=== PATIENT | male | born 1990 | race Caucasian/White ===

== ENCOUNTER → 2016-08-17 | Outpatient (CLI) | payer OTHER | LOC: RAD 09:30 | PROVIDERS: ATTEND Internal Medicine | DX: I70.1 Atherosclerosis of renal artery (principal) | CPT/HCPCS: 93975 ==

== ENCOUNTER 2017-05-07 05:03 | Emergency (ER) | payer BC, OTHER ==
[2017-05-07] MEDS ORDERED: HYDROMORPHONE HCL INJ/PF 2 MG/ML AMPULE IV ONE (05:31)
[2017-05-07] MEDS ORDERED: NORMAL SALINE 1000 ML 1,000 ML IV ONE (05:50)
[2017-05-07] MEDS ORDERED: PROPOFOL INJ 200 MG/20 ML VIAL IV ONE (05:50)
--- NOTE | 2017-05-07 05:59 | RADIOLOGY REPORT (SQ) ---
EXAM DESCRIPTION: ANKLE LEFT AP/LATERAL CLINICAL HISTORY: deformity. Crush injury. COMPARISON: None. FINDINGS: 2 views of the left ankle. Acute spiral fracture of the distal left tibia with intra-articular extension and mild displacement. There is an avulsion fracture of the medial malleolus. Spiral fracture of the distal left fibular diaphysis with mild displacement. Normal osseous mineralization. This is diffuse soft tissue swelling. No definite radiopaque foreign body or subcutaneous air. IMPRESSION: 1. Acute comminuted spiral fracture of the distal left tibial metaphysis with intra-articular extension to the tibial plafond. 2. Mildly displaced comminuted spiral fracture of the distal left fibula.
[2017-05-07] MEDS ORDERED: ONDANSETRON HCL INJ/PF 4 MG/2 ML SDV IV ONE (06:02)
[2017-05-07] MEDS ORDERED: ONDANSETRON HCL INJ/PF 4 MG/2 ML SDV ONE (06:04)
--- NOTE | 2017-05-07 06:31 | ER Document Report ---
ED General - General Chief Complaint: Ankle Injury Stated Complaint: FOOT INJURY Time Seen by Provider: 05/07/17 05:49 Notes: Patient is a 26-year-old male who presents with complaint of injury to his left ankle. He was wrestling with his brother when his brother fell onto his left ankle and cause it to break. He denies any other injuries. No other complaints. He has no medical problems. He has no medical allergies. Said he did have some alcohol earlier tonight. He said the last drink was over 3 hours ago. Last time he ate was a little over 4 hours ago. No numbness into the foot. No other complaints at this time. TRAVEL OUTSIDE OF THE [place] IN LAST 30 DAYS: No - Related Data Allergies/Adverse Reactions: No Known Allergies Allergy (Unverified 05/07/17 05:07) Past Medical History - Social History Smoking Status: Unknown if Ever Smoked Frequency of alcohol use: Occasional Drug Abuse: None Family History: Reviewed & Not Pertinent Patient has suicidal ideation: No Patient has homicidal ideation: No Renal/ Medical History: Denies: Hx Peritoneal Dialysis Review of Systems - Review of Systems Notes: My Normal Review Basic REVIEW OF SYSTEMS: CONSTITUTIONAL : Denies fever, chills, or sweats. Denies recent illness. RESPIRATORY: Denies cough, cold, or chest congestion. Denies shortness of breath, difficulty breathing, or wheezing. GASTROINTESTINAL: Denies abdominal pain. Denies nausea, vomiting, or diarrhea. Denies constipation. Last BM: MUSCULOSKELETAL: Pain in left ankle. SKIN: Denies rash or skin lesions. NEUROLOGICAL: Denies altered mental status or loss of consciousness. Denies headache. Denies weakness or paralysis or loss of use of either side. Denies problems with gait or speech. Denies sensory or motor loss. ALL OTHER SYSTEMS REVIEWED AND NEGATIVE. Physical Exam - Vital signs Vitals: Temp Pulse Resp BP Pulse Ox 98.1 F 113 H 16 168/115 H 98 05/07/17 05:10 05/07/17 05:10 05/07/17 05:10 05/07/17 05:10 05/07/17 05:10 - Notes Notes: General Appearance: Well nourished, alert, cooperative, no acute distress, mild to moderate obvious discomfort. Vitals: reviewed, See vital signs table. Eyes: PERRL, EOMI, Conjuctiva clear Mouth: No decreasd moisture Throat: No tonsillar inflammation, No airway obstruction, No lymphadenopathy Neck: Supple, no neck tenderness, No swelling Lungs: No wheezing, No rales, No rhonci, No accessory muscle use, good air exchange bilaterally. Heart: Normal rate, Regular rythm, No murmur, no rub Extremities: strength 5/5 in all extremities, good pulses in all extremities, obvious deformity to left ankle. Distal pulses intact. Good capillary refill. No pain above the ankle or into the knee., no edema. Skin: warm, dry, appropriate color, no rash Neuro: speech clear, oriented x 3, normal affect, responds appropriately to questions. Distal sensation intact. Course - Re-evaluation Re-evalutation: 05/07/17 07:15 Patient is awake from sedation. He looks well. He tolerated sedation well without difficulty. Ankle splint this was placed on. He will be given crutches. He will be discharged to follow closely with orthopedist. I talked to him and his brother at length about the importance of follow-up with orthopedist informed him there is a high likelihood that he may need surgery. Patient is understanding of this. Patient encouraged to return to ER if he has any further concerns or complications. Patient will be discharged home. Dictation of this chart was performed using voice recognition software; therefore, there may be some unintended grammatical errors. - Vital Signs Vital signs: Temp Pulse Resp BP Pulse Ox 98.1 F 113 H 19 147/109 H 100 05/07/17 05:10 05/07/17 05:10 05/07/17 06:35 05/07/17 06:34 05/07/17 06:35 Procedures - Conscious Sedation procedural sedation Consent obtained: Yes Prior complications: Procedural sedation Normal healthy pt.: P1. - ASA Classification Airway Evaluation: Normal anatomy Mallampati Classification: Class 1 Used during procedure: Suction available, IV access obtained, Pulse ox on pt., bridge operator slip on pt. Medications administered: Diprivan Reversal agents: None I personally performed/intraservice time: 30 min or less Complications: No - Immobilization left ankle Pre-Proc Neuro Vasc Exam: Normal Immobilizer type: Sugar tong, Short Leg Posterior Performed by: Provider Post-Proc Neuro Vasc Exam: Normal Alignment checked and good: Yes - Joint Reduction/Fracture Care Left Ankle Consent obtained: Yes Conscious sedation: Yes Pre-procedure NV exam: Yes Fracture: Closed Manipulation comment: traction Post-procedure NV exam: Yes Post-reduction x-ray: Joint reduced Reduction attempts: 1 Complications: No Discharge - Discharge Clinical Impression: Ankle fracture, left Qualifiers: Encounter type: initial encounter Fracture type: closed Qualified Code(s): S82.892A - Other fracture of left lower leg, initial encounter for closed fracture Condition: Good Instructions: Use of Crutches (OM), Oral Narcotic Medication (OM) Additional Instructions: You have fractures of the tibia and Fibula. These are 2 bones that make up your ankle. You will most likely need surgery. We have splinted your ankle to give it support until your follow up with the orthopedist. Please call the orthopedist's office on Monday to make a close follow up appointment. Please return to the ER immediately if you are having worsening pain, fevers, numbness or weakness into your foot, or if you feel unwell. If you feel that your splint is too tight you can loosen the mimi wrap on the splint. If it still feels too tight you should return to the ER so we can reevaluate the the splint. Do not bear any weight on your foot. Prescriptions: Oxycodone HCl/Acetaminophen [Percocet 5-325 mg Tablet] 1 tab PO Q4H PRN #15 tablet PRN Reason: Forms: Return to Work Referrals: SIXTO JUSTICE MD [ACTIVE STAFF] - 05/08/17 (call the office monday to make a close follow up appointment.)
[2017-05-07 07:24] VITALS: BP 128/90
--- NOTE | 2017-05-07 08:13 | RADIOLOGY REPORT (SQ) ---
EXAM DESCRIPTION: ANKLE LEFT AP/LATERAL COMPLETED DATE/TIME: 05/07/2017 7:06 am REASON FOR STUDY: Postreduction views. COMPARISON: Left ankle 05/07/2017. NUMBER OF VIEWS: Two views through overlying cast. TECHNIQUE: Post casting AP and lateral radiographic images acquired of the left ankle. LIMITATIONS: None. FINDINGS: There is again evidence of the previously described comminuted spiral fracture distal righ t tibia extending into the tibial plafond. Interval decrease in lateral displacement of the major di stal fracture fragment. There is near anatomical alignment at the site of the previously noted media l malleolar fracture fragment. The distal fibular fracture demonstrates reduction in lateral displac ement with minimal posterior displacement of the major fracture fragment noted. IMPRESSION: Status post casting comminuted spiral fractures distal left tibia , medial malleolus, an d fibula . TECHNICAL DOCUMENTATION: JOB ID: [id number] [employer]- All Rights Reserved
== END 2017-05-07 07:32 | disposition home or self-care (01) ==
LOC: ER 05:03
PROC: 0QSGXZZ Reposition Right Tibia, External Approach (ICD-10-PCS; principal; 2017-05-07)
PROC: 0QSKXZZ Reposition Left Fibula, External Approach (ICD-10-PCS; 2017-05-07)
DX: S82.892A Other fracture of left lower leg, initial encounter for closed fracture (principal); W50.0XXA Accidental hit or strike by another person, initial encounter; Y93.72 Activity, wrestling
CPT/HCPCS: 99284; 96361; 99152; 96374; 96375; 73600; 27825; 27788; J1170; J2405; J7030; J2704

== ENCOUNTER 2017-05-11 08:00 | Inpatient (IN) | payer OTHER, BC ==
[2017-05-10 11:34] LABS: ABSOLUTE BASOPHILS # (AUTO) 0.1 10^3/uL (0.0-0.2); ABSOLUTE EOSINOPHILS # (AUTO) 0.1 10^3/uL (0.0-0.6); ABSOLUTE LYMPHOCYTES (AUTO) 1.9 10^3/uL (0.5-4.7); ABSOLUTE MONOCYTES (AUTO) 0.9 10^3/uL (0.1-1.4); ABSOLUTE NEUT (AUTO) 7.9 10^3/uL (1.7-8.2); BASOPHILS % (AUTO) 0.5 % (0-2); EOSINOPHILS % (AUTO) 0.9 % (0-6); HEMATOCRIT 43.6 % (37.9-51.0); LYMPHOCYTES % (AUTO) 17.5 % (13-45); MEAN CORPUSCULAR HEMOGLOBIN 30.5 pg (27.0-33.4); MEAN CORPUSCULAR HGB CONC 34.5 g/dL (32.0-36.0); MEAN CORPUSCULAR VOLUME 89 fl (80-97); MONOCYTES % (AUTO) 8.2 % (3-13); PLATELET COUNT 357 10^3/uL (150-450); RED BLOOD COUNT 4.93 10^6/uL (4.35-5.55); RED CELL DISTRIBUTION WIDTH 12.8 % (11.5-14.0); SEGMENTED NEUTROPHILS % (AUTO) 72.9 % (42-78); TOTAL CELLS COUNTED % (AUTO) 100 %; WHITE BLOOD COUNT 10.8 10^3/uL (4.0-10.5)
[2017-05-10 11:42] LABS: APPEARANCE,URINE SLIGHTLY-CLOUDY; BILIRUBIN,URINE NEGATIVE (NEGATIVE); COLOR,URINE YELLOW; GLUCOSE, URINE NEGATIVE (NEGATIVE); KETONES,URINE NEGATIVE (NEGATIVE); LEUKOCYTE ESTERASE,URINE NEGATIVE (NEGATIVE); NITRITE,URINE NEGATIVE (NEGATIVE); PROTEIN,URINE 100 mg/dL (NEGATIVE)
[2017-05-10 11:50] LABS: ANION GAP 13 (5-19); BLOOD UREA NITROGEN 16 mg/dL (7-20); CARBON DIOXIDE 28 mmol/L (22-30); CHLORIDE 99 mmol/L (98-107); GLUCOSE 102 mg/dL (75-110); POTASSIUM 4.6 mmol/L (3.6-5.0); SODIUM 139.6 mmol/L (137-145)
--- NOTE | 2017-05-10 23:25 | EKG REPORT ---
SEVERITY:- OTHERWISE NORMAL ECG - SINUS RHYTHM BORDERLINE LEFT AXIS DEVIATION : Confirmed by: Rakesh Villasenor 10-May-2017 23:24:39
[~2017-05-11 08:00] MED LIST: CEFAZOLIN 2 GM/D5W RTU 2 GM/50 ML RTUPB IV PRN; LACTATED RINGERS 1000 ML IV PRN; LIDOCAINE 0.5% INJ-PF (5 MG/ML) 50 ML SDV SUBCUT PRN
[2017-05-11] MEDS ORDERED: BUPIVACAINE HCL 0.25 % INJ/PF (2.5 MG/1 ML) 30 ML VIAL ONE (08:12)
[2017-05-11] MEDS ORDERED: MIDAZOLAM 2 MG/2 ML INJ ONE ×3 (08:34→09:39)
[2017-05-11] MEDS ORDERED: PROPOFOL INJ 200 MG/20 ML VIAL IV ONE ×2 (09:23→09:40)
[2017-05-11] MEDS ORDERED: ACETAMINOPHEN 0 ML IV ONE (09:23)
[2017-05-11] MEDS ORDERED: DEXAMETHASONE SOD PHOSPHATE INJ 4 MG/1 ML VIAL ONE ×2 (09:23→09:39)
[2017-05-11] MEDS ORDERED: FENTANYL CITRATE INJ/PF 100 MCG/2 ML AMPUL ONE ×5 (09:23→13:19)
[2017-05-11] MEDS ORDERED: ONDANSETRON HCL INJ/PF 4 MG/2 ML SDV ONE ×2 (09:23→09:39)
[2017-05-11] MEDS ORDERED: MORPHINE SULFATE 10 MG/ML INJ ONE (09:24)
[2017-05-11] MEDS ORDERED: METOPROLOL TARTRATE PF/INJ 5 MG/5 ML SDV IV ONE ×2 (09:38→11:23)
[2017-05-11] MEDS ORDERED: HYDRALAZINE HCL INJ/PF 20 MG/1 ML SDV ONE ×3 (09:39→19:33)
[2017-05-11] MEDS ORDERED: KETOROLAC TROMETHAMINE 60 MG/2 ML SDV ONE ×2 (09:39→10:46)
[2017-05-11] MEDS ORDERED: HYDROMORPHONE HCL INJ/PF 2 MG/ML AMPULE ONE ×2 (09:40→11:56)
[2017-05-11] MEDS ORDERED: ACETAMINOPHEN 100 ML IV ONE (09:40)
[2017-05-11] MEDS ORDERED: PROMETHAZINE HCL INJ 25 MG/1 ML VIAL IV PRN ×4 (10:21→14:41)
[2017-05-11] MEDS ORDERED: MORPHINE SULFATE 10 MG/ML INJ IV PRN ×2 (10:21→14:41)
[2017-05-11] MEDS ORDERED: FENTANYL CITRATE INJ/PF 100 MCG/2 ML AMPUL IV PRN ×6 (10:21→14:41)
[2017-05-11] MEDS ORDERED: MEPERIDINE HCL/PF INJ 25 MG/1 ML DISP.SYRIN IV PRN ×2 (10:21→14:41)
[2017-05-11] MEDS ORDERED: DIPHENHYDRAMINE HCL 50 MG/ML VIAL IV PRN ×2 (10:21→14:41)
[2017-05-11] MEDS ORDERED: ROCURONIUM BROMIDE INJ 50 MG/5 ML VIAL IV ONE (10:46)
[2017-05-11] MEDS ORDERED: PROMETHAZINE HCL INJ 25 MG/1 ML VIAL ONE (14:10)
--- NOTE | 2017-05-11 14:16 | Operative Report ---
Operative Report DATE OF SURGERY: 05/11/17 PREOPERATIVE DIAGNOSIS: Left displaced pilon fracture POSTOPERATIVE DIAGNOSIS: Same OPERATION: ORIF of left Pilon fracture and ORIF of left fibula fracture SURGEON: CADE VEGA ANESTHESIA: GA TISSUE REMOVED OR ALTERED: none COMPLICATIONS: tip of drill bit broke off in side bone ESTIMATED BLOOD LOSS: 100 mL INTRAOPERATIVE FINDINGS: as above PROCEDURE: Patient was brought to the operating room after receiving preoperative antibiotics. Tourniquet was applied to the left thigh. Splint was removed and the left lower extremity was prepped and draped in normal surgical fashion. Timeout was done identifying the left distal tibia is a correct site. Esmarch was used to exsanguinate the extremity and the tourniquet was inflated at 300 mmHg. A straight longitudinal incision was done right over the distal tibia over the ankle joint and then curved medially. Metzenbaum scissors was used to do soft tissue dissection. Anterior tibialis tendon was exposed. Anterior retinacular ligament was then released. Used a 15 blade and to do a incision right over the tibial spine releasing the periosteum and retracting it both medial laterally. Hohmann retractors were used to reflect the anterior tibialis and neurovascular structures laterally. Patella my medially was exposed at the fracture site and fracture was exposed and visualized. With traction and pointed reduction clamps and a ball-tipped pusher was then used to obtain reduction of the shaft onto the distal fragment. There was a medial malleolus fragment that was held intact with the soft tissues. I proceeded then to placed a K wire with a ball tip into 1 of the K wire holes distally to secure the plate distally. Drilled and measured and placed appropriate screw in the proximal fragment into the shaft. C-arm was used to guide drilling and position and measurements. Every time we placed a screw we measured and then took C-arm pictures. I was satisfied with the placement of the plate and my reduction of the fracture so I then placed my locking screws into the distal fragment and the proximal row. In the distal row I placed 2 screws in a nonlocking fashion. I then proceeded to drill and fill the remaining holes in the shaft proximally. I attempted to drill and potentially fixed the medial fragment but noticed that there was a avulsion piece of the medial fragment on top of the medial plateau fracture that was not held with the plate. I placed a percutaneous screw and secured the medial malleolus avulsion fragment. I then used a K wire and then measured and placed a partially threaded cancellus screw from medial to lateral with a washer. This was securing the medial fragment to the distal lateral fragment reducing the joint anteriorly very nicely. I visualize the joint and there was no step-offs or gaps. Tourniquet hit 130 minutes of tourniquet was let down and then any acute bleeds were coagulated with the Bovie. I used a [place] elevator to confirm and palpate deeper posteriorly to make sure was reduced in acceptable manner. AP and lateral pictures were taken to make sure the screws were in proper place and location. There is no violation of the joint. Laterally the fibula was then pulled out to length. Proceeded then to close the wound using 0 Vicryl to approximate the periosteum and subcutaneous tissue. The plate was covered with the tissue and retinaculum was too tight to repair so we did not proceeded to close the cutaneous tissue and dermis with 0 Vicryl. Then we used arline for skin. We then turned our attention to the lateral malleolus and did a lateral incision right over the fibula. Skin dissection was done with a 10 blade and then blunt dissection was done with Metzenbaum scissors and periosteal elevator. There was a butterfly fragment that reduced to both the distal and proximal fragment. Subsequent was able to reduce it after putting a titanium plate over. C-arm pictures show proper length of the place we proceeded to place 3 screws above and 3 screws below using C-arm as well drilled and measuring guide. After doing bridging plate technique for the fibula final pictures were taken in the AP and lateral showing reduction and fixation. Then proceeded to close the wound with 0 Vicryl and then 2-0 Vicryl and then arline for skin. Extremity was cleaned. And then Xeroform 4 x 4 dressing followed by ABD pad was applied and overwrapped with soft roll. Posterior splint with a U- splint was applied and overwrapped with an Lopez bandage and held neutral while it hardened. Patient then was extubated and sent to PACU in stable condition.
[2017-05-11] MEDS ORDERED: OXYCODONE-ACETAMINOPHEN 5-325 MG TABLET PO PRN ×3 (14:37→14:41)
[2017-05-11] MEDS ORDERED: OXYCODONE HCL IR 5 MG TABLET PO PRN (14:38)
[2017-05-11] MEDS ORDERED: ONDANSETRON HCL INJ/PF 4 MG/2 ML SDV IV PRN (14:46)
--- NOTE | 2017-05-11 16:39 | RADIOLOGY REPORT (SQ) ---
EXAM DESCRIPTION: ANKLE LEFT AP/LATERAL; NO CHG FLUORO COMPLETED DATE/TIME: 05/11/2017 4:25 pm REASON FOR STUDY: ORIF LEFT ANKLE S82.872A DISPLACED PILON FRACTURE OF LEFT TIBIA, INIT FOR CL S82. 62XA DISP FX OF LATERAL MALLEOLUS OF LEFT FIBULA, INIT COMPARISON: 05/07/2017 FLUOROSCOPY TIME: 1.6 minutes 8 digital radiographic images saved to PACS. TECHNIQUE: Intra-operative images acquired during surgical procedure to evaluate progress. NUMBER OF IMAGES: 8 digital radiographic images LIMITATIONS: None. FINDINGS: Intraoperative imaging and fluoro during ORIF of comminuted distal left tibia and fibula f ractures. Please see the operative report for further details IMPRESSION: Intra procedural imaging and fluoro COMMENT: Quality ID [id number]: Final reports for procedures using fluoroscopy that document radiation exp osure indices, or exposure time and number of fluorographic images (if radiation exposure indices are not available) Please consult full operative report of the attending physician for description of the procedure. TECHNICAL DOCUMENTATION: JOB ID: [id number] [employer]- All Rights Reserved
[2017-05-11] MEDS: HYDROMORPHONE HCL INJ/PF 2 MG/ML AMPULE IV PRN ×3 (17:10→23:36)
[2017-05-11] MEDS: OXYCODONE HCL IR 5 MG TABLET PO PRN ×2 (18:29→22:23)
[2017-05-11] MEDS: OXYCODONE-ACETAMINOPHEN 5-325 MG TABLET PO PRN ×2 (18:30→22:21)
[2017-05-11] MEDS: CEFAZOLIN 2 GM/D5W RTU 2 GM/50 ML RTUPB IV SCH (18:31)
[2017-05-11] MEDS ORDERED: INFLUENZA ADLT QUAD (36MOS+) 2017-18 VAC 0.5 ML SYR IM PRN (20:31)
[2017-05-11] MEDS ORDERED: HYDRALAZINE HCL INJ/PF 20 MG/1 ML SDV IV PRN (20:31)
[2017-05-11] MEDS: LISINOPRIL 10 MG TABLET PO SCH (20:37)
[2017-05-12] MEDS ORDERED: HYDROMORPHONE HCL INJ/PF 2 MG/ML AMPULE ONE (00:57)
[2017-05-12] MEDS ORDERED: HYDROMORPHONE HCL INJ/PF 2 MG/ML AMPULE SUBCUT ONE (01:30)
[2017-05-12] MEDS: HYDROMORPHONE HCL INJ/PF 2 MG/ML AMPULE IV PRN ×6 (01:31→21:35)
[2017-05-12] MEDS: CEFAZOLIN 2 GM/D5W RTU 2 GM/50 ML RTUPB IV SCH (01:31)
[2017-05-12] MEDS: OXYCODONE HCL IR 5 MG TABLET PO PRN ×4 (02:50→20:39)
[2017-05-12] MEDS: OXYCODONE-ACETAMINOPHEN 5-325 MG TABLET PO PRN ×2 (02:50→07:39)
[2017-05-12] MEDS ORDERED: HYDROMORPHONE HCL INJ/PF 2 MG/ML AMPULE IV PRN (08:04)
[2017-05-12] MEDS ORDERED: HYDROMORPHONE HCL INJ/PF 2 MG/ML AMPULE IV SCH (08:15)
[2017-05-12] MEDS ORDERED: CHLORPROMAZINE HCL 25 MG TABLET PO ONE (14:00)
[2017-05-12] MEDS: DOCUSATE SODIUM 100 MG CAPSULE PO SCH (17:11)
[2017-05-12] MEDS: OXYCODONE HCL SR 10 MG TABLET PO SCH (17:11)
[2017-05-12] MEDS: CHLORPROMAZINE HCL 25 MG TABLET PO SCH (17:11)
--- NOTE | 2017-05-12 18:19 | PDOC PROGRESS REPORT ---
Subjective Progress Note for:: 05/12/17 Subjective:: Patient and significant pain. Still requiring IV Dilaudid. Also taking OxyContin. Been laying flat on his bed with the extremity elevated with several pillows. Reason For Visit: S82.872A DISPLACED PILON FRACTURE OF LEF, S82.62XA Physical Exam Vital Signs: Temp Pulse Resp BP Pulse Ox 37.2 C 108 H 16 160/99 H 98 05/12/17 15:51 05/12/17 15:51 05/12/17 15:51 05/12/17 15:51 05/12/17 15:51 Intake & Output 05/11/17 05/12/17 05/13/17 06:59 06:59 06:59 Intake Total 3725 Output Total 1900 Balance 1825 Weight 104.33 kg 110.4 kg Adult Front & Back Image: 1 - Splint is dry clean and intact. Patient has tender cast but there is soft and depressible. Distally the toes are swollen but have capillary refill. There is a dopplerable pulse. Having a pain with any attempted flexion or extension of his toes. Results Laboratory Results: 05/10/17 10:30 05/10/17 10:30 Impressions: Ankle X-Ray 05/11/17 00:00 IMPRESSION: Intra procedural imaging and fluoro Fluoroscopy 05/11/17 00:00 IMPRESSION: Intra procedural imaging and fluoro Assessment & Plan - Plan Summary Plan Summary: Patient is postop day 1 from ORIF of his P line fracture in his lateral malleolus fracture. Continue elevation and icing. Currently still is tachycardic and hypertensive. This is been going on since the day of surgery, surgery now postoperatively. We will continue to defer to the hospitalist for management. Agree with regimen for pain control. Starting him on Xarelto 10 mg nightly.
[2017-05-12] MEDS ORDERED: 1/2 NORMAL SALINE 1,000 ML IV ONE ×2 (18:36→19:00)
[2017-05-12] MEDS ORDERED: VANCOMYCIN HCL 0 MG in DEXTROSE 5%-WATER 250 ML IV NR (18:45)
--- NOTE | 2017-05-12 18:46 | PDOC CONSULTATION ---
Consultation Consult Date: 05/12/17 Attending physician:: CADE VEGA Consult reason:: Management of Hypertension History of Present Illness Admission Date/PCP: 05/11/17 16:53 History of Present Illness: SHANNON LENNON is a 26 year old male past medical history of hypertension for which she is not taking any medications. Sustained a left tibia and fibula fracture after he fell and his brother fell on his leg. He underwent surgical repair on May 11. We are consulted for medical management of hypertension. I started him on lisinopril. He has also been getting IV hydralazine as needed. His pain has been on controlled. He has been getting Dilaudid. I started him on OxyContin and oxycodone and increased his Dilaudid dose. Around 530 the nurse called me saying that patient was tachycardic. Twelve-lead EKG showed sinus tachycardia in the 140s. Blood pressure was 140/75. We ordered some wide-open IV fluids better pain control. I was then called and told that he was having a fever of 101.5F. I have ordered a chest x-ray urinalysis with culture blood cultures I have also ordered repeat CBC CMP and a d-dimer. Vancomycin and meropenem will be started once cultures are obtained. Past Medical History Cardiac Medical History: Reports: Hypertension - MEDS AT ON TIME, NO MEDS NOW, ANES. AWARE Denies: Coronary Artery Disease, Myocardial Infarction Pulmonary Medical History: Denies: Asthma, Bronchitis, Chronic Obstructive Pulmonary Disease (COPD), Pneumonia Neurological Medical History: Denies: Seizures Musculoskeltal Medical History: Denies: Arthritis Hematology: Denies: Anemia Social History Smoking Status: Never Smoker Frequency of Alcohol Use: Occasional Hx Recreational Drug Use: No Hx Prescription Drug Abuse: No Family History Family History: DM, Hypertension Parental Family History Reviewed: Yes Children Family History Reviewed: Yes Sibling(s) Family History Reviewed.: Yes Medication/Allergy Home Medications: Oxycodone HCl/Acetaminophen [Percocet 5-325 mg Tablet] 1 tab PO Q6HP PRN Allergies/Adverse Reactions: No Known Allergies Allergy (Verified 05/10/17 11:00) Review of Systems Constitutional: ABSENT: night sweats, weakness Nose, Mouth, and Throat: ABSENT: sore throat Cardiovascular: ABSENT: edema Respiratory: ABSENT: hemoptysis Gastrointestinal: ABSENT: heartburn Genitourinary: ABSENT: dysuria Integumentary: ABSENT: pruritus, rash Neurological: ABSENT: lack of coordination, memory loss Psychiatric: ABSENT: anxiety Endocrine: ABSENT: heat intolerance Physical Exam Vital Signs: Temp Pulse Resp BP Pulse Ox 101.6 F H 137 H 20 167/83 H 100 05/12/17 18:30 05/12/17 18:30 05/12/17 18:30 05/12/17 18:30 05/12/17 18:30 Intake & Output 05/11/17 05/12/17 05/13/17 06:59 06:59 06:59 Intake Total 3725 Output Total 1900 Balance 1825 Weight 104.33 kg 110.4 kg Additional comments: Young male lying in bed not in acute distress Lungs: Clear to auscultation bilaterally normal respiratory effort HEENT: Pupils reactive light moist pink oropharyngeal mucosa with no lesions no scleral icterus no conjunctival discharge Neck: Supple no JVD trachea is midline Cardiac: S1-S2 regular no murmurs heard no peripheral edema no cyanosis no calf tenderness Left leg dressing in place Abdomen: Soft, no focal tenderness normal bowel sounds Skin: Warm and dry Results Laboratory Results: 05/10/17 10:30 05/10/17 10:30 Impressions: Ankle X-Ray 05/11/17 00:00 IMPRESSION: Intra procedural imaging and fluoro Fluoroscopy 05/11/17 00:00 IMPRESSION: Intra procedural imaging and fluoro Assessment & Plan - Diagnosis (4) Ankle fracture, left Qualifiers: Encounter type: initial encounter Fracture type: closed Qualified Code(s) : S82.892A - Other fracture of left lower leg, initial encounter for closed fracture - Time Time Spent: Greater than 70 Minutes - Plan Summary Plan Summary: IV fluids analgesics cultures as above chest x-ray ordered. Antibiotics started. Continue analgesics for pain. Thank you for this consult will continue to follow with you
[2017-05-12] MEDS: ACETAMINOPHEN 325 MG TABLET PO PRN (18:53)
--- NOTE | 2017-05-12 19:10 | RADIOLOGY REPORT (SQ) ---
EXAM DESCRIPTION: CHEST SINGLE VIEW COMPLETED DATE/TIME: 05/12/2017 6:59 pm REASON FOR STUDY: fever COMPARISON: None. EXAM PARAMETERS: NUMBER OF VIEWS: One view. TECHNIQUE: Single frontal radiographic view of the chest acquired. RADIATION DOSE: NA LIMITATIONS: None. FINDINGS: LUNGS AND PLEURA: No opacities, masses or pneumothorax. No pleural effusion. MEDIASTINUM AND HILAR STRUCTURES: No masses. Contour normal. HEART AND VASCULAR STRUCTURES: Heart normal in size. Normal vasculature. BONES: No acute findings. HARDWARE: None in the chest. OTHER: No other significant finding. IMPRESSION: NO ACUTE RADIOGRAPHIC FINDING IN THE CHEST. TECHNICAL DOCUMENTATION: JOB ID: [id number] [employer]- All Rights Reserved
[2017-05-12 19:16] LABS: ABSOLUTE EOSINOPHILS # (AUTO) 0.1 10^3/uL (0.0-0.6); ABSOLUTE LYMPHOCYTES (AUTO) 1.7 10^3/uL (0.5-4.7); ABSOLUTE MONOCYTES (AUTO) 1.1 10^3/uL (0.1-1.4); ABSOLUTE NEUT (AUTO) 9.5 10^3/uL (1.7-8.2); BASOPHILS % (AUTO) 0.2 % (0-2); EOSINOPHILS % (AUTO) 0.4 % (0-6); HEMATOCRIT 34.7 % (37.9-51.0); LYMPHOCYTES % (AUTO) 13.5 % (13-45); MEAN CORPUSCULAR HEMOGLOBIN 30.8 pg (27.0-33.4); MEAN CORPUSCULAR HGB CONC 34.9 g/dL (32.0-36.0); MEAN CORPUSCULAR VOLUME 88 fl (80-97); MONOCYTES % (AUTO) 8.8 % (3-13); PLATELET COUNT 305 10^3/uL (150-450); RED BLOOD COUNT 3.93 10^6/uL (4.35-5.55); RED CELL DISTRIBUTION WIDTH 12.5 % (11.5-14.0); SEGMENTED NEUTROPHILS % (AUTO) 77.1 % (42-78); TOTAL CELLS COUNTED % (AUTO) 100 %; WHITE BLOOD COUNT 12.3 10^3/uL (4.0-10.5)
[2017-05-12 19:17] LABS: HEMOGLOBIN 12.1 g/dL (13.5-17.0)
[2017-05-12 19:32] LABS: ALANINE AMINOTRANSFERASE 64 U/L (21-72); ALBUMIN 3.7 g/dL (3.5-5.0); ALKALINE PHOSPHATASE 60 U/L (38-126); ANION GAP 8 (5-19); ASPARTATE AMINO TRANSFERASE 54 U/L (17-59); BILIRUBIN,DIRECT 0.1 mg/dL (0.0-0.4); BILIRUBIN,TOTAL 0.4 mg/dL (0.2-1.3); BLOOD UREA NITROGEN 9 mg/dL (7-20); CALCIUM 8.6 mg/dL (8.4-10.2); CARBON DIOXIDE 29 mmol/L (22-30); CHLORIDE 98 mmol/L (98-107); GLUCOSE 115 mg/dL (75-110); POTASSIUM 3.8 mmol/L (3.6-5.0); SODIUM 134.6 mmol/L (137-145); TOTAL PROTEIN 6.4 g/dL (6.3-8.2)
[2017-05-12] MEDS ORDERED: VANCOMYCIN HCL 1,500 MG in DEXTROSE 5%-WATER 250 ML IV ONE (20:00)
[2017-05-12 20:07] LABS: APPEARANCE,URINE CLEAR; BILIRUBIN,URINE NEGATIVE (NEGATIVE); COLOR,URINE YELLOW; GLUCOSE, URINE NEGATIVE (NEGATIVE); KETONES,URINE NEGATIVE (NEGATIVE); LEUKOCYTE ESTERASE,URINE NEGATIVE (NEGATIVE); NITRITE,URINE NEGATIVE (NEGATIVE); PROTEIN,URINE NEGATIVE (NEGATIVE); URINE SPECIFIC GRAVITY 1.015
[2017-05-12] MEDS: LISINOPRIL 10 MG TABLET PO SCH (21:36)
[2017-05-13] MEDS: OXYCODONE HCL IR 5 MG TABLET PO PRN ×4 (00:29→21:06)
[2017-05-13] MEDS: MEROPENEM 1 GM in NORMAL SALINE 50 ML IV SCH ×3 (01:07→17:50)
[2017-05-13] MEDS: HYDROMORPHONE HCL INJ/PF 2 MG/ML AMPULE IV PRN ×6 (01:19→23:05)
[2017-05-13] MEDS ORDERED: VANCOMYCIN HCL 1,500 MG in DEXTROSE 5%-WATER 250 ML IV SCH (06:00)
[2017-05-13] MEDS: OXYCODONE HCL SR 10 MG TABLET PO SCH ×2 (06:22→17:48)
--- NOTE | 2017-05-13 07:51 | PDOC PROGRESS REPORT ---
Subjective Progress Note for:: 05/13/17 Subjective:: Patient lying in bed comfortably. Continues to have discomfort in his left ankle but states it is somewhat improving. Denies chest pain or shortness of breath. Denies fever chills or sweats. Reason For Visit: S82.872A DISPLACED PILON FRACTURE OF LEF, S82.62XA Physical Exam Vital Signs: Temp Pulse Resp BP Pulse Ox 100.3 F 118 H 20 163/97 H 96 05/13/17 04:27 05/13/17 04:27 05/13/17 04:27 05/13/17 04:27 05/13/17 04:27 Intake & Output 05/12/17 05/13/17 05/14/17 06:59 06:59 06:59 Intake Total 3725 2435 Output Total 1900 1825 Balance 1825 610 Weight 110.4 kg 110.6 kg Musculoskeletal exam: PRESENT: other - Left ankle: Splint clean/dry/intact. Cap refill less than 2 seconds. No sensory deficits. Intact plantar flexion/ dorsiflexion. Compartments soft and compressible no sign of compartment syndrome. Results Laboratory Results: 05/12/17 18:57 05/12/17 18:57 05/12/17 05/12/17 05/12/17 18:57 18:57 19:25 WBC 12.3 H RBC 3.93 L Hgb 12.1 L D Hct 34.7 L MCV 88 MCH 30.8 MCHC 34.9 RDW 12.5 Plt Count 305 Seg Neutrophils % 77.1 Lymphocytes % 13.5 Monocytes % 8.8 Eosinophils % 0.4 Basophils % 0.2 Absolute Neutrophils 9.5 H Absolute Lymphocytes 1.7 Absolute Monocytes 1.1 Absolute Eosinophils 0.1 Absolute Basophils 0.0 Sodium 134.6 L Potassium 3.8 Chloride 98 Carbon Dioxide 29 Anion Gap 8 BUN 9 Creatinine 0.70 Est GFR ( Amer) > 60 Est GFR (Non-Af Amer) > 60 Glucose 115 H Calcium 8.6 Total Bilirubin 0.4 AST 54 ALT 64 Alkaline Phosphatase 60 Total Protein 6.4 Albumin 3.7 Urine Color YELLOW Urine Appearance CLEAR Urine pH 7.0 Ur Specific [place] 1.015 Urine Protein NEGATIVE Urine Glucose (UA) NEGATIVE Urine Ketones NEGATIVE Urine Blood NEGATIVE Urine Nitrite NEGATIVE Ur Leukocyte Esterase NEGATIVE Urine WBC (Auto) 0 Urine RBC (Auto) 0 Impressions: Ankle X-Ray 05/11/17 00:00 IMPRESSION: Intra procedural imaging and fluoro Fluoroscopy 05/11/17 00:00 IMPRESSION: Intra procedural imaging and fluoro Chest X-Ray 05/12/17 00:00 IMPRESSION: NO ACUTE RADIOGRAPHIC FINDING IN THE CHEST. Assessment & Plan - Diagnosis (1) Ankle fracture, left Qualifiers: Encounter type: initial encounter Fracture type: closed Qualified Code(s) : S82.892A - Other fracture of left lower leg, initial encounter for closed fracture Is this a current diagnosis for this admission?: Yes Plan: Postop day #2 status post ORIF left Pilon fracture #1 physical therapy nonweightbearing #2 Xarelto for DVT prophylaxis #3 hospitalist consult for patient's tachycardia likely secondary to pain appreciate hospitalist consultation. #4 discharge planning anticipate discharge home on 05/15/17
--- NOTE | 2017-05-13 10:26 | EKG REPORT ---
SEVERITY:- BORDERLINE ECG - SINUS TACHYCARDIA BORDERLINE T WAVE ABNORMALITIES : Confirmed by: Rakesh Villasenor 13-May-2017 10:25:15
[2017-05-13] MEDS: CHLORPROMAZINE HCL 25 MG TABLET PO SCH ×3 (11:21→17:51)
[2017-05-13] MEDS: DOCUSATE SODIUM 100 MG CAPSULE PO SCH ×2 (11:21→17:49)
--- NOTE | 2017-05-13 14:24 | PDOC PROGRESS REPORT ---
Subjective Progress Note for:: 05/13/17 Subjective:: The patient had fever last night- chest Xray normal, blood cultures negative so far, UA normal. He is on empiric antibiotic He is requiring a lot of narcotics to control his pain though he feels better today. L foot pulse positive by doppler. Reason For Visit: S82.872A DISPLACED PILON FRACTURE OF LEF, S82.62XA Physical Exam Vital Signs: Temp Pulse Resp BP Pulse Ox 99.3 F 109 H 12 151/82 H 95 05/13/17 12:00 05/13/17 12:00 05/13/17 12:00 05/13/17 12:00 05/13/17 12:00 Intake & Output 05/12/17 05/13/17 05/14/17 06:59 06:59 06:59 Intake Total 3725 2435 118 Output Total 1900 1825 650 Balance 1825 610 -532 Weight 110.4 kg 110.6 kg Additional comments: Lungs: Clear to auscultation bilaterally normal respiratory effort HEENT: Pupils reactive light moist pink oropharyngeal mucosa with no lesions no scleral icterus no conjunctival discharge Neck: Supple no JVD trachea is midline Cardiac: S1-S2 regular no murmurs heard no peripheral edema no cyanosis no calf tenderness Left leg dressing in place Abdomen: Soft, no focal tenderness normal bowel sounds Skin: Warm and dry Results Laboratory Results: 05/12/17 18:57 05/12/17 18:57 05/12/17 05/12/17 05/12/17 18:57 18:57 19:25 WBC 12.3 H RBC 3.93 L Hgb 12.1 L D Hct 34.7 L MCV 88 MCH 30.8 MCHC 34.9 RDW 12.5 Plt Count 305 Seg Neutrophils % 77.1 Lymphocytes % 13.5 Monocytes % 8.8 Eosinophils % 0.4 Basophils % 0.2 Absolute Neutrophils 9.5 H Absolute Lymphocytes 1.7 Absolute Monocytes 1.1 Absolute Eosinophils 0.1 Absolute Basophils 0.0 Sodium 134.6 L Potassium 3.8 Chloride 98 Carbon Dioxide 29 Anion Gap 8 BUN 9 Creatinine 0.70 Est GFR ( Amer) > 60 Est GFR (Non-Af Amer) > 60 Glucose 115 H Calcium 8.6 Total Bilirubin 0.4 AST 54 ALT 64 Alkaline Phosphatase 60 Total Protein 6.4 Albumin 3.7 Urine Color YELLOW Urine Appearance CLEAR Urine pH 7.0 Ur Specific [place] 1.015 Urine Protein NEGATIVE Urine Glucose (UA) NEGATIVE Urine Ketones NEGATIVE Urine Blood NEGATIVE Urine Nitrite NEGATIVE Ur Leukocyte Esterase NEGATIVE Urine WBC (Auto) 0 Urine RBC (Auto) 0 Impressions: Ankle X-Ray 05/11/17 00:00 IMPRESSION: Intra procedural imaging and fluoro Fluoroscopy 05/11/17 00:00 IMPRESSION: Intra procedural imaging and fluoro Chest X-Ray 05/12/17 00:00 IMPRESSION: NO ACUTE RADIOGRAPHIC FINDING IN THE CHEST. Assessment & Plan - Diagnosis (1) Hypertension Qualifiers: Hypertension type: essential hypertension Qualified Code(s): I10 - Essential (primary) hypertension Plan: Lisinopril and PRN Hydralazine (2) Pain Is this a current diagnosis for this admission?: Yes Plan: Analgesics (4) Ankle fracture, left Qualifiers: Encounter type: initial encounter Fracture type: closed Qualified Code(s) : S82.892A - Other fracture of left lower leg, initial encounter for closed fracture Is this a current diagnosis for this admission?: Yes Plan: Analgesics (5) Fever of unknown origin (FUO) Is this a current diagnosis for this admission?: Yes Plan: Continue antibiotics- day 2 of Vanc and Meropenem Foillow up on culture - Time Time Spent with patient: 35 or more minutes
[2017-05-13] MEDS ORDERED: LACTOBACILLUS ACIDOPHILUS 250 MG TAB PO ONE (15:00)
[2017-05-13] MEDS: LACTOBACILLUS ACIDOPHILUS 250 MG TAB PO SCH (17:49)
[2017-05-13] MEDS: RIVAROXABAN 10 MG TABLET PO SCH (17:51)
[2017-05-13] MEDS: VANCOMYCIN HCL 1,500 MG in DEXTROSE 5%-WATER 250 ML IV SCH (18:08)
[2017-05-13] MEDS: LISINOPRIL 10 MG TABLET PO SCH (21:07)
[2017-05-14] MEDS: MEROPENEM 1 GM in NORMAL SALINE 50 ML IV SCH ×3 (01:43→18:11)
[2017-05-14] MEDS: OXYCODONE HCL IR 5 MG TABLET PO PRN ×3 (01:43→20:51)
[2017-05-14] MEDS: VANCOMYCIN HCL 1,500 MG in DEXTROSE 5%-WATER 250 ML IV SCH ×3 (02:21→18:11)
[2017-05-14] MEDS: HYDROMORPHONE HCL INJ/PF 2 MG/ML AMPULE IV PRN ×6 (03:23→23:17)
[2017-05-14] MEDS: OXYCODONE HCL SR 10 MG TABLET PO SCH ×2 (05:47→18:10)
[2017-05-14] MEDS: DOCUSATE SODIUM 100 MG CAPSULE PO SCH ×2 (10:57→18:10)
[2017-05-14] MEDS: LACTOBACILLUS ACIDOPHILUS 250 MG TAB PO SCH ×2 (10:57→18:10)
[2017-05-14] MEDS: CHLORPROMAZINE HCL 25 MG TABLET PO SCH ×3 (10:57→18:11)
--- NOTE | 2017-05-14 11:11 | PDOC PROGRESS REPORT ---
Subjective Progress Note for:: 05/14/17 Subjective:: 26-year-old gentleman with left ankle fracture status post surgery. We are managing his hypertension. He has no complaints at present. Reason For Visit: S82.872A DISPLACED PILON FRACTURE OF LEF, S82.62XA Physical Exam Vital Signs: Temp Pulse Resp BP Pulse Ox 98.3 F 105 H 12 143/89 H 95 05/14/17 07:30 05/14/17 07:30 05/14/17 07:30 05/14/17 07:30 05/14/17 07:30 Intake & Output 05/13/17 05/14/17 05/15/17 06:59 06:59 06:59 Intake Total 2435 2015 Output Total 894 3555 Balance 610 -1409 Weight 110.6 kg 109.2 kg Additional comments: Young gentleman lying in bed not in acute distress Neck: Supple no JVD trachea is midline Lungs: Clear to auscultation bilaterally normal respiratory effort Cardiac: S1-S2 regular no murmurs heard no peripheral edema no cyanosis no calf tenderness Left leg dressing in place Abdomen: Soft, no focal tenderness normal bowel sounds Skin: Warm and dry Results Laboratory Results: 05/12/17 18:57 05/14/17 09:47 05/14/17 09:47 Creatinine 0.72 Est GFR ( Amer) > 60 Est GFR (Non-Af Amer) > 60 05/12/17 19:25 Clean Catch Midstream Urine Culture - Final NO GROWTH 2 DAYS Impressions: Ankle X-Ray 05/11/17 00:00 IMPRESSION: Intra procedural imaging and fluoro Fluoroscopy 05/11/17 00:00 IMPRESSION: Intra procedural imaging and fluoro Chest X-Ray 05/12/17 00:00 IMPRESSION: NO ACUTE RADIOGRAPHIC FINDING IN THE CHEST. Assessment & Plan - Diagnosis (1) Hypertension Qualifiers: Hypertension type: essential hypertension Qualified Code(s): I10 - Essential (primary) hypertension (2) Pain Is this a current diagnosis for this admission?: Yes (4) Ankle fracture, left Qualifiers: Encounter type: initial encounter Fracture type: closed Qualified Code(s) : S82.892A - Other fracture of left lower leg, initial encounter for closed fracture Is this a current diagnosis for this admission?: Yes (5) Fever of unknown origin (FUO) Is this a current diagnosis for this admission?: Yes - Time Time Spent with patient: 15-24 minutes - Plan Summary Plan Summary: Continue lisinopril. Use hydralazine as needed.
[2017-05-14] MEDS: RIVAROXABAN 10 MG TABLET PO SCH (18:11)
[2017-05-14] MEDS: LISINOPRIL 10 MG TABLET PO SCH (22:58)
[2017-05-14] MEDS: ACETAMINOPHEN 325 MG TABLET PO PRN (23:17)
[2017-05-15] MEDS: MEROPENEM 1 GM in NORMAL SALINE 50 ML IV SCH ×2 (01:42→09:40)
[2017-05-15] MEDS: OXYCODONE HCL IR 5 MG TABLET PO PRN ×3 (02:26→15:28)
[2017-05-15] MEDS: VANCOMYCIN HCL 1,500 MG in DEXTROSE 5%-WATER 250 ML IV SCH ×2 (02:26→09:40)
[2017-05-15] MEDS: HYDROMORPHONE HCL INJ/PF 2 MG/ML AMPULE IV PRN ×2 (04:17→08:28)
[2017-05-15] MEDS: OXYCODONE HCL SR 10 MG TABLET PO SCH ×2 (06:02→17:24)
[2017-05-15 06:42] LABS: ABSOLUTE BASOPHILS # (AUTO) 0.1 10^3/uL (0.0-0.2); ABSOLUTE EOSINOPHILS # (AUTO) 0.2 10^3/uL (0.0-0.6); ABSOLUTE LYMPHOCYTES (AUTO) 1.2 10^3/uL (0.5-4.7); ABSOLUTE MONOCYTES (AUTO) 0.8 10^3/uL (0.1-1.4); BASOPHILS % (AUTO) 0.8 % (0-2); EOSINOPHILS % (AUTO) 2.6 % (0-6); HEMATOCRIT 36.2 % (37.9-51.0); HEMOGLOBIN 12.4 g/dL (13.5-17.0); LYMPHOCYTES % (AUTO) 13.2 % (13-45); MEAN CORPUSCULAR HEMOGLOBIN 30.1 pg (27.0-33.4); MEAN CORPUSCULAR HGB CONC 34.3 g/dL (32.0-36.0); MEAN CORPUSCULAR VOLUME 88 fl (80-97); MONOCYTES % (AUTO) 8.6 % (3-13); PLATELET COUNT 396 10^3/uL (150-450); RED BLOOD COUNT 4.12 10^6/uL (4.35-5.55); RED CELL DISTRIBUTION WIDTH 12.4 % (11.5-14.0); SEGMENTED NEUTROPHILS % (AUTO) 74.8 % (42-78); TOTAL CELLS COUNTED % (AUTO) 100 %; WHITE BLOOD COUNT 9.3 10^3/uL (4.0-10.5)
[2017-05-15 07:05] LABS: ALANINE AMINOTRANSFERASE 84 U/L (21-72); ALBUMIN 3.7 g/dL (3.5-5.0); ALKALINE PHOSPHATASE 68 U/L (38-126); ANION GAP 10 (5-19); ASPARTATE AMINO TRANSFERASE 56 U/L (17-59); BILIRUBIN,DIRECT 0.2 mg/dL (0.0-0.4); BILIRUBIN,TOTAL 0.7 mg/dL (0.2-1.3); BLOOD UREA NITROGEN 16 mg/dL (7-20); CALCIUM 9.8 mg/dL (8.4-10.2); CARBON DIOXIDE 30 mmol/L (22-30); CHLORIDE 97 mmol/L (98-107); GLUCOSE 102 mg/dL (75-110); PHOSPHORUS 4.2 mg/dL (2.5-4.5); POTASSIUM 4.6 mmol/L (3.6-5.0); SODIUM 136.5 mmol/L (137-145); TOTAL PROTEIN 6.5 g/dL (6.3-8.2)
[2017-05-15] MEDS: ACETAMINOPHEN 325 MG TABLET PO PRN (09:39)
[2017-05-15] MEDS: LACTOBACILLUS ACIDOPHILUS 250 MG TAB PO SCH ×2 (09:39→17:32)
[2017-05-15] MEDS: CHLORPROMAZINE HCL 25 MG TABLET PO SCH ×3 (09:39→17:32)
[2017-05-15] MEDS: DOCUSATE SODIUM 100 MG CAPSULE PO SCH ×2 (09:39→17:32)
--- NOTE | 2017-05-15 12:44 | PDOC PROGRESS REPORT ---
Subjective Progress Note for:: 05/15/17 Subjective:: Patient pain better controlled. no issues over the weekend Reason For Visit: S82.872A DISPLACED PILON FRACTURE OF LEF, S82.62XA Physical Exam Vital Signs: Temp Pulse Resp BP Pulse Ox 36.7 C 112 H 20 143/83 H 98 05/15/17 04:16 05/15/17 07:00 05/15/17 04:16 05/15/17 04:16 05/15/17 04:16 Intake & Output 05/14/17 05/15/17 05/16/17 06:59 06:59 06:59 Intake Total 2015 3036 Output Total 5 1465 Balance -1409 1572 Weight 109.2 kg 108.2 kg General appearance: PRESENT: no acute distress Adult Front & Back Image: 1 - Splint dry clean and intact. Doppler pulse, cap refill. soft calf Results Laboratory Results: 05/15/17 06:00 05/15/17 09:40 05/15/17 05/15/17 05/15/17 06:00 06:00 09:40 WBC 9.3 RBC 4.12 L Hgb 12.4 L Hct 36.2 L MCV 88 MCH 30.1 MCHC 34.3 RDW 12.4 Plt Count 396 Seg Neutrophils % 74.8 Lymphocytes % 13.2 Monocytes % 8.6 Eosinophils % 2.6 Basophils % 0.8 Absolute Neutrophils 7.0 Absolute Lymphocytes 1.2 Absolute Monocytes 0.8 Absolute Eosinophils 0.2 Absolute Basophils 0.1 Sodium 136.5 L Potassium 4.6 Chloride 97 L Carbon Dioxide 30 Anion Gap 10 BUN 16 Creatinine 0.78 0.72 Est GFR ( Amer) > 60 > 60 Est GFR (Non-Af Amer) > 60 > 60 Glucose 102 Calcium 9.8 Phosphorus 4.2 Magnesium 2.0 Total Bilirubin 0.7 AST 56 ALT 84 H Alkaline Phosphatase 68 Total Protein 6.5 Albumin 3.7 05/12/17 19:25 Clean Catch Midstream Urine Culture - Final NO GROWTH 2 DAYS Impressions: Ankle X-Ray 05/11/17 00:00 IMPRESSION: Intra procedural imaging and fluoro Fluoroscopy 05/11/17 00:00 IMPRESSION: Intra procedural imaging and fluoro Chest X-Ray 05/12/17 00:00 IMPRESSION: NO ACUTE RADIOGRAPHIC FINDING IN THE CHEST. Assessment & Plan - Plan Summary Plan Summary: POD 4 from ORIF left pilon fracture NWB LLE, Ice and elevate Continue PO pain meds but D/C IV dilaudid Continue xarelto Hypertension and tachycardia per hospitalist care
--- NOTE | 2017-05-15 14:34 | PDOC PROGRESS REPORT ---
Subjective Progress Note for:: 05/15/17 Subjective:: 26-year-old gentleman with left ankle fracture status post surgery. We are managing his hypertension. He has no complaints at present. he is medically clear for discharge Reason For Visit: S82.872A DISPLACED PILON FRACTURE OF LEF, S82.62XA Physical Exam Vital Signs: Temp Pulse Resp BP Pulse Ox 98.1 F 112 H 20 143/83 H 98 05/15/17 04:16 05/15/17 07:00 05/15/17 04:16 05/15/17 04:16 05/15/17 04:16 Intake & Output 05/14/17 05/15/17 05/16/17 06:59 06:59 06:59 Intake Total 2015 3036 Output Total 3425 1465 Balance -1409 1572 Weight 109.2 kg 108.2 kg General appearance: PRESENT: no acute distress Respiratory exam: PRESENT: clear to auscultation jeff, unlabored Cardiovascular exam: PRESENT: RRR Neurological exam: PRESENT: alert, awake, oriented to person, oriented to place , oriented to time, oriented to situation Results Laboratory Results: 05/15/17 06:00 05/15/17 09:40 05/15/17 05/15/17 05/15/17 06:00 06:00 09:40 WBC 9.3 RBC 4.12 L Hgb 12.4 L Hct 36.2 L MCV 88 MCH 30.1 MCHC 34.3 RDW 12.4 Plt Count 396 Seg Neutrophils % 74.8 Lymphocytes % 13.2 Monocytes % 8.6 Eosinophils % 2.6 Basophils % 0.8 Absolute Neutrophils 7.0 Absolute Lymphocytes 1.2 Absolute Monocytes 0.8 Absolute Eosinophils 0.2 Absolute Basophils 0.1 Sodium 136.5 L Potassium 4.6 Chloride 97 L Carbon Dioxide 30 Anion Gap 10 BUN 16 Creatinine 0.78 0.72 Est GFR ( Amer) > 60 > 60 Est GFR (Non-Af Amer) > 60 > 60 Glucose 102 Calcium 9.8 Phosphorus 4.2 Magnesium 2.0 Total Bilirubin 0.7 AST 56 ALT 84 H Alkaline Phosphatase 68 Total Protein 6.5 Albumin 3.7 Impressions: Ankle X-Ray 05/11/17 00:00 IMPRESSION: Intra procedural imaging and fluoro Fluoroscopy 05/11/17 00:00 IMPRESSION: Intra procedural imaging and fluoro Chest X-Ray 05/12/17 00:00 IMPRESSION: NO ACUTE RADIOGRAPHIC FINDING IN THE CHEST. Assessment & Plan - Diagnosis (1) Hypertension Qualifiers: Hypertension type: essential hypertension Qualified Code(s): I10 - Essential (primary) hypertension - Time Time Spent with patient: 15-24 minutes - Plan Summary Plan Summary: Medically cleared for discharge.
[2017-05-15] MEDS ORDERED: VANCOMYCIN HCL 1,500 MG in DEXTROSE 5%-WATER 250 ML IV SCH (15:00)
[2017-05-15] MEDS ORDERED: LISINOPRIL 10 MG TABLET PO ONE (15:00)
[2017-05-15 17:07] VITALS: BP 151/82
[2017-05-15] MEDS: RIVAROXABAN 10 MG TABLET PO SCH (17:26)
[2017-05-16] MEDS ORDERED: LISINOPRIL 10 MG TABLET PO SCH (10:00)
== END 2017-05-15 17:30 | disposition home or self-care (01) | DRG 494 ==
LOC: OROUT 08:00 → 3S 16:44 → OROUT 16:52 → UNDOADMOB 16:53 → INTOOBSV 16:53 → EH 16:53 → OBSVTOIN 16:53 → 3S 16:56 → EH 16:56 → OBSVTOIN 05-13 18:42 → 3S 05-13 18:42
PROVIDERS: ADMIT Orthopaedic Surgery; ATTEND Orthopaedic Surgery
PROC: 0QSH04Z Reposition Left Tibia with Internal Fixation Device, Open Approach (ICD-10-PCS; 2017-05-11)
PROC: 0QSK04Z Reposition Left Fibula with Internal Fixation Device, Open Approach (ICD-10-PCS; principal; 2017-05-11 10:00)
PROC: 3E0234Z Introduction of Serum, Toxoid and Vaccine into Muscle, Percutaneous Approach (ICD-10-PCS; 2017-05-15)
DX: S82.872A Displaced pilon fracture of left tibia, initial encounter for closed fracture (principal); S82.62XA Displaced fracture of lateral malleolus of left fibula, initial encounter for closed fracture; I10 Essential (primary) hypertension; W19.XXXA Unspecified fall, initial encounter; Y93.01 Activity, walking, marching and hiking; Y92.9 Unspecified place or not applicable; Z23 Encounter for immunization
CPT/HCPCS: 01480; 36415; 71045; 80048; 80053; 80202; 81001; 82565; 83735; 84100; 85025; 85379; 87040; 87086; 90686; 93005; 93010; C1713; C1769; G0378; J0131; J0360; J0690; J1100; J1170; J1885; J2185; J2250; J2270; J2405; J2550; J2704; J3010; J3370; J3490; J7060